=== PATIENT | female | born 1985 | race Caucasian/White ===

== ENCOUNTER 2017-12-19 07:36 | Day surgery (SDC) | payer MEDICAID ==
[~2017-12-19] VITALS: Ht 162.6 cm; Wt 98.9 kg
--- NOTE | ~2017-12-19 | HP ---
PATIENT: TIEN LINCOLN MEDICAL RECORD: [id number] ACCOUNT: [id number] LOCATION:[facility] : 85 ADMISSION DATE: 12/19/17 HISTORY AND PHYSICAL EXAMINATION HISTORY OF PRESENT ILLNESS: Tien is 32 years old. She is having problems with nasal obstruction, septal deviation, turbinate hypertrophy, refractory to medical management. She is being admitted for septoplasty and bilateral inferior turbinate reduction. PAST MEDICAL HISTORY: Otherwise negative. PAST SURGICAL HISTORY: None. CURRENT MEDICATIONS: None. ALLERGIES: No known drug allergies. PHYSICAL EXAMINATION: GENERAL: She is healthy-appearing, good historian, developmentally normal. FACE: Normal, symmetric, no lesions. EYES: Sclerae and conjunctivae are normal. EARS: Canals and TMs are normal. NOSE: Severe right septal deviation, large inferior turbinates and some watery drainage. NECK: No masses, no adenopathy. CHEST: Clear. CARDIOVASCULAR: Regular rate and rhythm, no murmur. EXTREMITIES: Normal. IMPRESSION: Nasal obstruction, septal deviation, and turbinate hypertrophy. PLAN: Septoplasty and bilateral inferior turbinate reduction. We will draw blood for a RAST at that time. TRANSINT:[id number] Voice Confirmation ID: [id number] DOCUMENT ID: [id number] BEVERLY OLMOS MD at 1711 CC: [id number] DICTATION DATE: 12/16/17 1302 TIE INSPECTOR: 12/16/[address] [facility] [place] [place] 12/19/17 [place] [id number]
--- NOTE | ~2017-12-19 | OP ---
PATIENT NAME: MARIBEL LINCOLN MEDICAL RECORD: [id number] :85 LOCATION:[facility] ADMISSION DATE: SURGEON: BEVERLY FOLEY MD DATE OF OPERATION: 12/19/2017 PREOPERATIVE DIAGNOSES: Nasal obstruction, septal deviation, and turbinate hypertrophy. POSTOPERATIVE DIAGNOSES: Nasal obstruction, septal deviation, and turbinate hypertrophy. PROCEDURES: Septoplasty and bilateral inferior turbinate reduction. SURGEON: Beverly Foley MD ANESTHESIA: General orotracheal. BLOOD LOSS: Less than 5 cc. SPECIMENS: Portion of the inferior turbinates. PACKING: She had Jennings splints placed bilaterally. COMPLICATIONS: None. DISPOSITION: Recovery, stable. PROCEDURE NOTE: She was brought to the operating room, placed in supine position, sedated and intubated by anesthesia. The eyes were taped. She was positioned, prepped and draped for nasal surgery. She had already been decongested with Afrin preoperatively. Nose was examined using a headlight and nasal speculum. Both sides of the septum, floor of the nose and inferior turbinates were injected with a total of less than 2 cc of 1% lidocaine with 1:100,000 epinephrine and 2 Afrin pledgets were placed in each side of the nose. After waiting for decongestion, all the Afrin pledgets were removed. A left-sided [place] incision was made and ipsilateral mucoperichondrial flap was elevated. The caudal septum was inside the left nostril. It was not between the medial crura of the columella. She had a large bony spur on the left side. The cartilaginous septum and a bony spur posteriorly were deviated to the right and the cartilage was basically in the floor of the right nostril and inverted? The cartilage was dissected out of the floor of the right nostril and the excess cartilage was trimmed off. The bony cartilaginous junction was disarticulated in order to allow the cartilaginous septum to fall back to the midline. A pocket was developed between medial crura, the lower lateral cartilages. The lower lateral cartilage in the mid alar rim on the left side looked like it had been transected possibly from an old injury. Some relaxing incisions were made on the right side of the cartilaginous septum to allow it to fall back to the midline and then a cover was used to make above and below the bony posterior spur and that was removed. A chisel was used to remove some of the bony spur off the left side of the maxillary spine and then the septal flap was closed back down and the septum was in the midline and intact, looked good. Both inferior turbinates were medialized. The [place] was used to take down the inferior portion of the turbinates. Suction cautery on a setting of 25 was used to stop any bleeding. They were both outfractured with a [place] elevator. The nasopharynx was suctioned. With the field clean and dry, the Enio incision OPERATIVE REPORT [id number] MARIBEL LINCOLN was closed with interrupted 4-0 chromic. Jennings splints were placed bilaterally with some mupirocin ointment and sutured to the anterior membranous septum with a 2-0 Prolene on a Krystian needle. She was awakened, extubated, and transported to recovery in good condition. No complications. TRANSINT:[id number] Voice Confirmation ID: [id number] DOCUMENT ID: [id number] BEVERLY FOLEY MD at 1711 CC: [id number] DICTATION DATE: 12/19/17 1320 [employer]'S AIDE: 12/19/17 1331 [facility] [place] 12/19/[address] [facility] [address] [place] [address]
[2017-12-19 07:56] LABS: HEMOGLOBIN 13.8 g/dL (12-16); MCH 30.5 pg (26.0-34.0); MCHC 33.7 g/dL (31.0-37.0); MCV 90.5 fL (80.0-100.0); RBC 4.53 10x6/uL (4.00-5.40); RDW 12.5 % (11.5-14.5); WBC 11.9 10x3/uL (4.8-10.8)
[2017-12-19 09:03] VITALS: BP 105/66; Ht 162.6 cm; Wt 98.9 kg
== END 2017-12-19 14:45 | disposition home or self-care (01) ==
LOC: D.OPS 07:36 → D.PAN 10:00 → D.OPS 10:35
PROVIDERS: Anesthesiology
DX: J34.2 Deviated nasal septum (principal); J34.89 Other specified disorders of nose and nasal sinuses; J34.3 Hypertrophy of nasal turbinates